=== PATIENT | female | born 1930 | race Caucasian/White ===

== ENCOUNTER 2016-10-16 12:40 | Inpatient (IN) ==
--- NOTE | 2016-10-16 13:07 | EKG Report ---
Stationary ECG Study [facility] ER Test Date: 10/16/2016 1:09:37 PM Pat Name: RODGER BAUTISTA Department: Room: Gender: F [employer] Operator: Adeel Corcoran : 1930 Requested by: Ayaan Florez Order Number: [id number] Reading MD: SANDY VÁZQUEZ Intervals Clune Rate: 104 P: 999 MD: 0 QRS: 77 QRSD: 88 T: 55 QT: 316 QTc: 376 Interpretive Statements ATRIAL FIBRILLATION WITH RAPID VENTRICULAR RESPONSE POOR R-WAVE PROGRESSION Electronically Signed On 10-16-16 17:41:21 CDT by SANDY VÁZQUEZ [email or web address]
--- NOTE | 2016-10-16 13:34 | XRay Report ---
XR chest 2V Indication: Chest pain, cough, fever Comparison: Chest x-ray dated July 18, 2016 Technique: Frontal and lateral views of the chest. Findings: [id number] cardiomegaly. Chronic change of the lungs without focal consolidation, pleural effusion, or pneumothorax. Visualized osseous and surrounding soft tissue structures appear grossly unchanged. Diffuse osteopenia. IMPRESSION: Stable chest x-ray. Continued cardiomegaly without anna pulmonary edema. PROCEDURE INTERPRETED AT [facility] DEPARTMENT OF RADIOLOGY Final Report Signed by: Dr Parminder Khan
[2016-10-16] MEDS ORDERED: ASPIRIN 325 MG TABLET PO STA (14:17)
[2016-10-16] MEDS ORDERED: KETOROLAC 30 MG/1 ML VIAL IV STA (14:17)
--- NOTE | 2016-10-16 14:31 | Emergency Department Note ---
Mitzy Fitzgerald Hilary, am scribing for, and in the presence of, Jay Jay Spencer MD 14: 19. Johanna Fitzgerald James D, MD, personally performed the services described in this documentation, ascribed by Cindy Forrester in my presence, and it is both accurate and complete [id number] . Arrival - Arrival Chief Complaint: Chest Pain Stated Complaint: c/o chest pain ED Nursing Triage Note: Pt c/o chest pain (worse with deep inspiration), chills , cough, and nausea started this am. Mode of Arrival: Ambulatory Limitations: No Limitations Source: Patient, RN Notes Reviewed Time Seen by Provider: 10/16/16 14:13 - History of Present Illness HPI Narrative: Pt is a 86 y/o white female presenting to the ED with chest pain which onset yesterday. She confirms chest pain, fever, pain upon breathing abut denies exertion making it worse. No other complaints or problems stated in the ED. Onset (ago): day(s) Consistency: constant Severity: mild Severity scale (1-10): 2 Quality: other (stings) Allergies/Adverse Reactions: Allergies Allergy/AdvReac Type Severity Reaction Status Date / Time No Known Allergies Allergy Unverified 10/05/14 09:34 Home Medications: Home Medications Medication Instructions Recorded Confirmed Type Atenolol 25 mg PO QAM 10/06/14 10/16/16 History Digoxin Tab [Lanoxin Tab] 0.125 mg PO QAM 07/18/16 10/16/16 History Review of System - Review of System 12 point system: reviewed and no additional remarkable complaints except as stated - Review of System Constitutional: Present: fever Cardiovascular: Present: chest pain (upon deep breaths). Absent: dyspnea on exertion Medical,Surgical,& Family Hx - Medical History Cardio: History of: Cardiac Dysrhythmia (afib) Neurology: History of: Neurological Problems (memory problems) HEENT: History of: Eye Problem (GLASSES), Dental Problems (FULL SET OF DENTURES) Respiratory: History of: Bronchitis Renal: No history of: Renal Failure Gastrointestinal: History of: GERD, Polyps, GI Problems (COLON RESECTION IN 2010 DUE TO LEAKING POLYP) Musculoskeletal: History of: Amputation Hematology: History of: Bleeding Problems (TAKES COUMADIN) Reproductive: History of: Abnormal Pap Smear - Surgical History HEENT Surgeries: Surgical HX of: Eye Surgery (CATARACT SURGERY), Tonsilectomy & Adenoidectomy Abdominal Surgeries: Surgical HX of: Abdominal Surgery (jejunal resection for ruptured diverticulitis of the jejunum), Appendectomy (194) Reproductive Surgeries: Surgical HX of;: Gynecologic Surgery, Hysterectomy (1972 ) Orthopedic Surgeries: Surgical HX of;: Total Knee Replacement (LEFT KNEE REPLACEMENT 2009) - Family History Family History: Reports;: Family Cancer (SISTER BREAST CANCER) - Social History Smoking Status: Never smoker Exam Physical Examination: GENERAL: This is a well-nourished, well-developed in no apparent distress. VITAL SIGNS: Temperature: 100.1 Pulse: 96 Respiratory: 22 Blood Pressure: 132 /99 O2Sat: 99 HEENT: Head is normocephalic and atraumatic. Pupils are equally round and reactive to light. Extraocular movement are intact. Oropharynx is benign with moist mucous membranes. NECK: Neck is soft and supple without tenderness. There are no masses. There is no lymphadenopathy. LUNGS: Lungs are clear to auscultation bilaterally. Chest rises symmetrically. There is chest wall tenderness. CV: Heart is irregularly irregular without murmurs, rubs, or gallops. ABDOMEN: Abdomen is soft, non-tender to palpation. There are no abnormal masses palpated. There is no organomegaly. Bowel sounds are present and active. SKIN: Skin is warm and dry. No rash. EXTREMITIES: Patient has full range of motion without tenderness. There is no pedal edema. NEUROLOGIC: Awake, alert, and oriented x4. Cranial nerves II through XII are grossly intact. There are no motorsensory deficits. PSYCHIATRIC: Normal affect. Normal mood. Vital Signs: Vital Signs Temperature 99.0 F 10/16/16 15:19 Pulse Rate 96 H 10/16/16 13:03 Respiratory Rate 17 10/16/16 15:15 Blood Pressure 132/99 10/16/16 13:03 O2 Sat by Pulse Oximetry 99 10/16/16 13:03 Course - Consultations Consultation #1: Discussed with hospitalist. Patient will be admitted to their service. Time: 15:40 Results - Labs CBC & BMP: 10/16/16 14:45 10/16/16 14:45 Lab Results: I have reviewed the patients labs Labs: Laboratory Tests 10/16/16 10/16/16 14:45 14:49 WBC 9.0 RBC 4.96 Hgb 15.1 Hct 44.9 Plt Count 189 Neut % (Auto) 74.1 H Lymph % (Auto) 16.5 L POC Creatinine 0.72 POC Estimated GFR (eGFR) > 60 Laboratory Tests 10/16/16 14:45 INR 1.0 PT Patient/Control Mix 10.4 Circ Anticoag PTT 31.7 Laboratory Tests 10/16/16 14:45 Sodium 136 Potassium 4.2 Chloride 101 Carbon Dioxide 28 BUN 13 Calculated Osmolality 271.0 L Troponin I < 0.015 Total Protein 7.0 - EKG EKG results: interpreted by ERMD - Impressions EKG: Atrial fib with RVR, rate 104, low voltage QRS, nonspecific ST-T wave changes. - Diagnostic Findings Procedure: Chest x-ray: report reviewed by me, image reviewed by me (stable chest x-ray. Continued cardiomegaly without anna pulmonary edema.), CT - chest : report reviewed by me (1. no evidence of PE. 2. Since 2012, stable scarring of the right middle lobe and lingula with associated bronchiectasis. Nonspecific heterogeneous groundglass opacity involves both lungs diffusely. QUery mild fluid overload. 3. Mediastinal lymphadenopathy. ) Disposition Clinical Impression: Fever, Chest pain, Mediastinal lymphadenopathy Case discussed with: patient, patient's family Disposition: Still a Patient Condition: Stable Time of Disposition: 15:15
[2016-10-16] MEDS ORDERED: KETOROLAC 30 MG/1 ML VIAL ONE (14:35)
[2016-10-16] MEDS ORDERED: ASPIRIN 325 MG TABLET ONE (14:35)
[2016-10-16 14:54] LABS: Basophils % 0.2 % (0.0-0.8); Eosinophils % 0.1 % (0.00-10.9); Hematocrit 44.9 VOL% (35.7-47.0); Hemoglobin 15.1 GM/DL (12.0-16.0); Immature Granulocytes % 0.4 %; Immature Granulocytes Absolute 0.04 #; Lymphocytes # 1.5 10*3/uL (1.4-4.0); Lymphocytes % 16.5 % (21.3-54.2); Mean Corpuscular HGB Conc 33.6 GM/DL (32-36); Mean Corpuscular Hemoglobin 30 PG (27-34); Mean Corpuscular Volume 90.5 FL (87-102); Mean Platelet Volume 9.7 FL (9.6-12.0); Monocytes # 0.8 10*3/uL (0.11-0.8); Monocytes % 8.7 % (1.7-12.7); Neutrophils # 6.7 10*3/uL (1.4-7.4); Neutrophils % 74.1 % (38.7-73.9); Platelet Count 189 T/CUMM (130-400); Red Blood Count 4.96 MC/CUMM (3.8-5.5); Red Cell Distribution Width 13.2 % (9.3-17.3)
[2016-10-16 15:06] LABS: PT Patient Result 10.4 SECS; Partial Thromboplastin Time 31.7 SECS (0-40)
--- NOTE | 2016-10-16 15:07 | CT Report ---
CT chest PE study Indication: Shortness of breath. CT CHEST WITH CONTRAST, PE PROTOCOL DLP: 183 mGy*cm. One or more of the following dose reduction techniques was used: Automated exposure control, adjustment of the mA and/or kV according the patient size, or use of iterative reconstruction techniques. Comparison: 08/16/2011 Technique: Axial CT images of the chest were obtained during the pulmonary arterial phase of contrast injection. Coronal reconstructions were provided. Omnipaque 350, 80 cc. Findings: No pulmonary artery filling defects to the segmental level. Normal-sized Main pulmonary artery. Atheromatous disease the aorta is noted. No aneurysm or dissection. Coronary artery calcifications are present as well. Normal heart size. Mediastinal lymphadenopathy is present, largest node pretracheal, 10 mm short axis. No pathologic hilar or axillary lymphadenopathy. Lung windows demonstrate bands of scarring and bronchiectasis extending anterior from both hilar structures, one in the right middle lobe and the other in the lingula. Both of these are unchanged since 2012. No new infiltrates. Mild bibasilar atelectasis. Couple of calcified granulomata are present. Somewhat of a heterogeneous groundglass perfusion pattern of the lungs noted diffusely. Limited views of the upper abdomen show fatty infiltration of the liver and calcified gallstones. Degenerative changes of the thoracic spine and osteoporosis noted. Impression: 1. No evidence of PE. 2. Since 2012, stable scarring of the right middle lobe and lingula with associated bronchiectasis. Nonspecific heterogeneous groundglass opacity involves both lungs diffusely. Query mild fluid overload. 3. Mediastinal lymphadenopathy, new since previous examination. No additional lymphadenopathy is seen. PROCEDURE INTERPRETED AT [facility] DEPARTMENT OF RADIOLOGY Final Report Signed by: Avi Rojas M.D.
[2016-10-16 15:17] LABS: Alanine Aminotransferase 18 U/L (13-56); Albumin 4.1 G/DL (3.4-5.0); Alkaline Phosphatase 107 U/L (45-117); Aspartate Amino Transferase 16 U/L (0-37); Blood Urea Nitrogen 13 MG/DL (7-18); Calcium 9.5 MG/DL (8.5-10.1); Glucose 104 MG/DL (74-106); Potassium 4.2 MMOL/L (3.5-5.1); Sodium 136 MMOL/L (136-145); Troponin I Only < 0.015 NG/ML (0.00-0.045)
[2016-10-16] MEDS ORDERED: guaiFENesin/DM ER 600-30 MG TABLET PO PRN (16:14)
[2016-10-16] MEDS ORDERED: ACETAMINOPHEN 325 MG TABLET PO PRN (16:14)
[2016-10-16] MEDS ORDERED: diphenhydrAMINE CAP 25 MG CAPSULE PO PRN (16:14)
[2016-10-16] MEDS ORDERED: ONDANSETRON 4 MG/2 ML VIAL IV PRN (16:14)
[2016-10-16] MEDS ORDERED: DOCUSATE SODIUM 100 MG CAPSULE PO PRN (16:14)
[2016-10-16] MEDS ORDERED: PROMETHAZINE 25 MG/1 ML VIAL IM PRN (16:14)
--- NOTE | 2016-10-16 16:29 | Hospitalist History & Physical ---
<Kaitlyn Tellez - Last Filed: 10/16/16 16:22> Assessment and Plan - Time spent with patient Time spent with patient: Greater than 30 minutes (1) Chest pain Status: Acute Assessment and plan: Acute pain mid-chest presented 09/29. Has subsided at this time.EKG in the ED shows A-fib with controlled rate. Normal Troponin. (2) Fever Status: Acute Assessment and plan: upon presenting to ER patient had a low grade temp will order PRN tylenol. (3) Mediastinal lymphadenopathy Status: Acute Assessment and plan: CT results no PE noted; stable scarring of right middle lobe and lingula with associated bronchiectasis; nonspecific heterogeneous groundglass opacity involves both lungs diffusely; query mild fluid overload; Medistinal lymphadenopathy, new since previous exam. Will Consult Dr Galicia for further evaluation. (4) Atrial fibrillation Problem details: The patient is probably somewhat confused. I think she's been taking her warfarin sporadically. Discussed with family. Status: Acute Assessment and plan: Afib history; irregular rate with controlled rate. patient is not on any blood thinners related to history of peritoneal bleed; and a fall about 2 years ago that caused her to have a large hematoma to right arm and had to have a graft. Patient will not be on any blood thinners. Qualifiers: Atrial fibrillation type: chronic Qualified Code(s): I48.2 - Chronic atrial fibrillation History of Present Illness Chief complaint: Chest pain History of present illness: Ms. Woods is a very pleasant 86 year old white female with a history of A-Fib , GERD, Polyps. Presents to the ER with c/o mid-chest pain and low grade temp 99.0. The pain started last night but was tolerable; got much worse this morning 09/29 rate and unrelieved by mylanta. Home Medications Medication Instructions Recorded Confirmed Type Atenolol 25 mg PO QAM 10/06/14 10/16/16 History Digoxin Tab [Lanoxin Tab] 0.125 mg PO QAM 07/18/16 10/16/16 History Aspirin 81 mg PO DAILY #30 tab.chew 10/17/16 Rx Levofloxacin Tab [Levaquin Tab] 500 mg PO DAILY #7 tablet 10/17/16 Rx Pantoprazole Tab [Protonix Tab] 40 mg PO DAILY #30 tablet 10/17/16 Rx Allergies Allergy/AdvReac Type Severity Reaction Status Date / Time No Known Allergies Allergy Unverified 10/05/14 09:34 Medical,Surgical,& Family Hx - Medical History Cardio: History of: Cardiac Dysrhythmia (afib) Neurology: History of: Neurological Problems (memory problems) HEENT: History of: Eye Problem (GLASSES), Dental Problems (FULL SET OF DENTURES) Respiratory: History of: Bronchitis Renal: No history of: Renal Failure Gastrointestinal: History of: GERD, Polyps, GI Problems (COLON RESECTION IN 2010 DUE TO LEAKING POLYP) Musculoskeletal: History of: Amputation Hematology: History of: Bleeding Problems (TAKES COUMADIN) Reproductive: History of: Abnormal Pap Smear - Surgical History HEENT Surgeries: Surgical HX of: Eye Surgery (CATARACT SURGERY), Tonsilectomy & Adenoidectomy Abdominal Surgeries: Surgical HX of: Abdominal Surgery (jejunal resection for ruptured diverticulitis of the jejunum), Appendectomy (1944) Reproductive Surgeries: Surgical HX of;: Gynecologic Surgery, Hysterectomy ( 1972 for uterine cancer) Orthopedic Surgeries: Surgical HX of;: Total Knee Replacement (LEFT KNEE REPLACEMENT 2009) - Family History Family History: Reports;: Family Cancer (SISTER BREAST CANCER) - Social History Smoking Status: Never smoker Review of systems: 10 ROS systems obtained and positives and negatives per HPI Exam - Constitutional Vitals: Period Temp Pulse Resp BP Sys/Baron Pulse Ox Last 24 Hr 99.0 F-100.1 F 96-96 17-22 132-132/99-99 99 General appearance: normal weight, no acute distress - Head Head exam: Present: normal inspection - Eye Eye exam: Present: EOMI Pupils: Present: SIMÓN - Neck Neck exam: Present: normal inspection - Respiratory Respiratory exam: Present: clear to auscultation bilaterally. Absent: chest wall tenderness - Cardiovascular Cardiovascular exam: Present: irregular rhythm (Afib) - GI/Abdominal GI/Abdominal exam: Present: normal bowel sounds, soft. Absent: guarding, tenderness, rebound - Extremities Exam Extremities exam: Present: full ROM. Absent: edema - Neurological Exam Neurological exam: Present: alert, oriented X3 - Psychiatric Psychiatric exam: Present: normal affect - Skin Skin exam: Present: normal color, warm, dry Results - Labs CBC & BMP: 10/16/16 14:45 10/16/16 14:45 Lab Results: I have reviewed the past 24 hour labs - Diagnostic Findings Procedure: CT - chest: report reviewed by me (No evidence of PE; stable scarring of right middle lobe w/ associated bronchiectasis; query mild fluid overload; mediastinal lymphadenopathy, new since previous examination; no additional lymphadenopathy seen.), X-ray: report reviewed by me (stable chest xray; continued cardiomegaly without anna pulmonary edema.) Quality Measures - VTE Contraindication to Pharmacological VTE Prophylaxis: High Risk of Bleeding <Lisa Carbajal - Last Filed: 10/17/16 17:16> History of Present Illness History of present illness: Ms. Woods is a 86 year old female I was not notified of this patient yesterday so I didn't see her then. I agree with this H&P, see discharge summary form today also. Exam - Constitutional Vitals: Period Temp Pulse Resp BP Sys/Baron Pulse Ox Last 24 Hr 96.9 F-98.5 F 62-86 16-18 108-136/57-86 95-97 Results - Labs CBC & BMP: 10/17/16 03:14 10/17/16 03:14
[2016-10-16] MEDS: SODIUM CHLORIDE 0.9% 1,000 ML IV SCH (18:24)
[2016-10-17 04:07] LABS: Basophils % 0.3 % (0.0-0.8); Eosinophils # 0.1 10*3/uL (0.0-0.87); Eosinophils % 0.8 % (0.00-10.9); Hemoglobin 12.8 GM/DL (12.0-16.0); Immature Granulocytes % 0.3 %; Immature Granulocytes Absolute 0.02 #; Lymphocytes # 1.7 10*3/uL (1.4-4.0); Lymphocytes % 27.5 % (21.3-54.2); Mean Corpuscular HGB Conc 32.8 GM/DL (32-36); Mean Corpuscular Hemoglobin 30 PG (27-34); Mean Corpuscular Volume 90.7 FL (87-102); Mean Platelet Volume 10.2 FL (9.6-12.0); Monocytes # 0.8 10*3/uL (0.11-0.8); Monocytes % 13.4 % (1.7-12.7); Neutrophils # 3.6 10*3/uL (1.4-7.4); Neutrophils % 57.7 % (38.7-73.9); Platelet Count 156 T/CUMM (130-400); Red Cell Distribution Width 13.3 % (9.3-17.3); White Blood Count 6.3 T/CUMM (4-12)
[2016-10-17 04:34] LABS: Bilirubin,Total 1.4 MG/DL (0.2-1.0); Calcium 8.8 MG/DL (8.5-10.1); Magnesium 2.2 MG/DL (1.8-2.4); Osmolality,Calculated 281.3 MOS/KG (273-304); Potassium 4.4 MMOL/L (3.5-5.1); Total Protein 5.4 G/DL (6.4-8.3)
[2016-10-17] MEDS: SODIUM CHLORIDE 0.9% 1,000 ML IV SCH (06:14)
--- NOTE | 2016-10-17 07:48 | Pulmonology Consult Note ---
Assessment and Plan (1) Chest pain Status: Acute Assessment and plan: The patient presents with sharp stabbing lower chest pain that has resolved. This certainly sounds musculoskeletal but it could be related to her GI tract. She certainly looks fairly healthy at present. Current Visit: Yes (2) Fever Status: Acute Assessment and plan: The patient had a temp to 100.1 but otherwise is not having any other symptoms. Current Visit: Yes (3) Mediastinal lymphadenopathy Status: Acute Assessment and plan: The mediastinal adenopathy looks quite insignificant and I would certainly just follow this. Current Visit: Yes (4) Atrial fibrillation Problem details: The patient is probably somewhat confused. I think she's been taking her warfarin sporadically. Discussed with family. Status: Acute Assessment and plan: Patient has chronic atrial fibrillation and will continue medications. Current Visit: No Qualifiers: Atrial fibrillation type: chronic Qualified Code(s): I48.2 - Chronic atrial fibrillation History of Present Illness Chief complaint: Chest pain History of present illness: Ms. Woods is a 86 year old white female that came in yesterday with some sharp lower sternal chest pain that started in the morning. The patient has been quite healthy and active. She says she works in her garden and has been feeling well. She does have a history of having atrial fibrillation in the past. Otherwise she has never had any cardiac disease. She states 2 nights ago she had a large meal and then ate some watermelon. She went to bed the next morning she woke up with a stabbing pain. She took some Maalox and was better. She came to the emergency room and the pain returned and was relieved by Toradol. She does not recall having any injuries to her chest. She is otherwise feeling well. She has not had any unusual fevers, sweats or weight changes. She says she has a good appetite. In the emergency room she had a CT angiogram that was negative. It was reported that she had some 1 cm mediastinal nodes. At present she says she is feeling much better. Home Medications Medication Instructions Recorded Confirmed Type Atenolol 25 mg PO QAM 10/06/14 10/16/16 History Digoxin Tab [Lanoxin Tab] 0.125 mg PO QAM 07/18/16 10/16/16 History Allergies Allergy/AdvReac Type Severity Reaction Status Date / Time No Known Allergies Allergy Unverified 10/05/14 09:34 - Constitutional Constitutional: Absent: chills, fatigue, fever(s), headache(s), night sweats, weakness, weight gain, weight loss - EENT Eyes: Absent: loss of vision Ears: Absent: decreased hearing Nose, mouth and throat: Absent: dysphagia, neck mass, sinus pressure - Cardiovascular Cardiovascular: Present: chest pain at rest. Absent: chest pain with activity, dyspnea, dyspnea on exertion, edema, orthopnea, palpitations, PND - Respiratory Respiratory: Present: pain on inspiration. Absent: cough, dyspnea, hemoptysis, wheezing - Gastrointestinal Gastrointestinal: Present: other (She thought she may have had a maroon color stool). Absent: abdominal pain, change in bowel habits, constipation, dysphagia , heartburn, nausea, vomiting - Genitourinary Genitourinary: Absent: difficulty urinating, dysuria, hematuria, urinary frequency - Musculoskeletal Musculoskeletal: Absent: arthralgias, back pain, muscle weakness, myalgias - Neurological Neurological: Absent: abnormal speech, focal weakness, paresthesias - Psychiatric Psychiatric: Absent: anxiety, depression - Hematologic/Lymphatic Hematologic/Lymphatic: Absent: easy bruising, lymphadenopathy Exam (Pulmonay) H&P - Constitutional Vitals: Period Temp Pulse Resp BP Sys/Baron Pulse Ox Last 24 Hr 96.9 F-100.1 F 71-96 16-22 108-136/57-99 95-99 General appearance: normal weight, no acute distress - Head Head exam: Present: normal inspection, normocephalic - Eye Eye exam: Present: EOMI. Absent: scleral icterus Pupils: Present: SIMÓN - ENT ENT exam: Present: normal exam - Neck Neck exam: Present: normal inspection. Absent: lymphadenopathy, thyromegaly - Respiratory Respiratory exam: Present: chest wall tenderness. Absent: clear to auscultation bilaterally, rhonchi, wheezes - Cardiovascular Cardiovascular exam: Present: irregular rhythm. Absent: gallop, systolic murmur , tachycardia - GI/Abdominal GI/Abdominal exam: Present: normal bowel sounds, soft. Absent: distended, organomegaly, tenderness - Extremities Exam Extremities exam: Absent: calf tenderness, edema - Neurological Exam Neurological exam: Present: alert, oriented X3, CN II-XII intact. Absent: motor sensory deficit - Psychiatric Psychiatric exam: Present: normal affect, normal mood - Skin Skin exam: Present: warm, dry Medical,Surgical,& Family Hx - Medical History Cardio: History of: Cardiac Dysrhythmia (afib) No history of: Hypertension, [place], Pacemaker Psychological: No history of: Anxiety Disorders Neurology: History of: Neurological Problems (memory problems) HEENT: History of: Eye Problem (GLASSES), Dental Problems (FULL SET OF DENTURES) Respiratory: History of: Bronchitis, Pneumonia Renal: No history of: Renal Failure Gastrointestinal: History of: GERD, Polyps, GI Problems (COLON RESECTION IN 2010 DUE TO LEAKING POLYP) Musculoskeletal: History of: Amputation, Musculoskeletal Problems (back brace from a fracture) Hematology: No history of: Bleeding Problems (TAKES COUMADIN) Reproductive: History of: Abnormal Pap Smear - Surgical History Cardiac Surgeries: Patient Denies: Cardiac Catheterization Thoracic Surgeries: Patient denies;: Organ Transplant, Lobectomy Neurologic Surgeries: Patient denies: Neurologic Surgery HEENT Surgeries: Surgical HX of: Eye Surgery (CATARACT SURGERY), Tonsilectomy & Adenoidectomy Abdominal Surgeries: Surgical HX of: Abdominal Surgery (jejunal resection for ruptured diverticulitis of the jejunum), Appendectomy (1944) Reproductive Surgeries: Surgical HX of;: Gynecologic Surgery, Hysterectomy ( 1972 for uterine cancer) Orthopedic Surgeries: Surgical HX of;: Total Knee Replacement (LEFT KNEE REPLACEMENT 2009) - Family History Family History: Reports;: Family Cancer (SISTER BREAST CANCER) - Social History Smoking Status: Never smoker Frequency of Alcohol Use: None Type of Drug Use: None Results - Labs CBC & BMP: 10/17/16 03:14 10/17/16 03:14 - Diagnostic Findings Procedure: Chest x-ray: image reviewed by me, report reviewed by me (Chest x- ray shows borderline cardiomegaly otherwise unremarkable.), CT - chest: image reviewed by me, report reviewed by me (CT shows no signs of emboli. There is very small mediastinal adenopathy that really unchanged from 2012.) Quality Measures - VTE Contraindication to Pharmacological VTE Prophylaxis: High Risk of Bleeding - Stroke Symptom Onset Unknown: No
[2016-10-17] MEDS ORDERED: ATENOLOL 25 MG TABLET PO SCH (09:00)
[2016-10-17] MEDS ORDERED: PANTOPRAZOLE 40 MG TABLET PO SCH (09:00)
--- NOTE | 2016-10-17 09:28 | Hospitalist Progress Note ---
Assessment and Plan - Time spent with patient Time spent with patient: Less than 30 minutes (1) Chest pain Status: Acute Assessment and plan: 10/17/16 - acute lower chest pain resolved; she had a good night without SOB or chest pain. No distress noted. Dr Galicia followed for consult for resulted mediastinal lymphadenopathy found on the CT - He believes that it is insignificant and feels it needs to be followed. Discuss with Dr Carbajal findings. Acute pain mid-chest presented 09/29. Has subsided at this time.EKG in the ED shows A-fib with controlled rate. Normal Troponin. Current Visit: Yes (2) Fever Status: Acute Assessment and plan: 10/17/16 - patient is afebrile (97.8) - has PRN tylenol ordered if needed. upon presenting to ER patient had a low grade temp will order PRN tylenol. Current Visit: Yes (3) Mediastinal lymphadenopathy Status: Acute Assessment and plan: 10/17/16 - Dr Galicia was consulted; he feels the mediastinal lyphadenopathy is insignificant at this time; but feels need to be followed. 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 Will Consult Dr Galicia for further evaluation. Current Visit: Yes (4) Atrial fibrillation Problem details: The patient is probably somewhat confused. I think she's been taking her warfarin sporadically. Discussed with family. Status: Acute Assessment and plan: 10/17/16 - afib history with rate controlled. patient has significant history for retroperitoneal bleed; unable to take anticoagulation. - will continue current medications. Afib history; irregular rate with controlled rate. patient is not on any blood thinners related to history of peritoneal bleed; and a fall about 2 years ago that caused her to have a large hematoma to right arm and had to have a graft. Patient will not be on any blood thinners. Current Visit: No Qualifiers: Atrial fibrillation type: chronic Qualified Code(s): I48.2 - Chronic atrial fibrillation Hospitalist: Subjective Interval history: 10/17/16 - very pleasant Ms Woods 86 y/o w/f came in yesterday with lower chest pain; on exam: sitting up on side of bed about to eat breakfast; no acute distress; denies any SOB or chest pain throughout the night. Verbalizes had a good night; verbalizes that Dr Galicia saw her this morning; Exam - Constitutional Vitals: Period Temp Pulse Resp BP Sys/Baron Pulse Ox Last 24 Hr 96.9 F-100.1 F 70-96 16-22 108-136/57-99 95-99 General appearance: normal weight - Head Head exam: Present: normal inspection - Eye Eye exam: Present: EOMI Pupils: Present: SIMÓN - Neck Neck exam: Present: normal inspection - Respiratory Respiratory exam: Present: clear to auscultation bilaterally - Cardiovascular Cardiovascular exam: Present: irregular rhythm (history of AFib- not on blood thinners; unable to take any anticoagulation medications due to history) Results - Labs CBC & BMP: 10/17/16 03:14 10/17/16 03:14 Lab Results: I have reviewed the past 24 hour labs (Neutrophilss and Lymph have returned to normal values; [place] increaed to 13.4 from 8.7 this a.m.) Quality Measures - VTE Contraindication to Pharmacological VTE Prophylaxis: High Risk of Bleeding - Stroke Symptom Onset Unknown: No
--- NOTE | 2016-10-17 11:38 | Discharge Summary ---
Hospital Course - Hospital Course Hospital Course: Mrs Woods was admitted yesterday after having chest pain after 2 large meals the night before. The pain was atypical in nature. She had complete relief after receiving Toradol in the ER. She feels good this morning. She ruled out for GA. Her UA was clear. She was seen by DR Galicia regarding the mediastinal lymphadenopathy seen on chest CT ordered to rule out PE. He felt like the most prudent course was to follow these as outpatient and will see her in his clinic and do CT chest in 6 months. I also talked to Dr Stearns who will see her soon in clinic. He knows her well and will follow up on the PPI that I have started. I also recommended tylenol for recurrent pain. If her symptoms change or become more concerning he will refer her to cardiology. She used to see DR Bobby. - Time spent with patient Time with patient DS: Greater than 30 minutes (coordinating [employer] poan with Dr Stearns and Dr Galicia and patient and her daughter. documentation, medicine reconciliation) Diagnosis - Discharge Diagnosis (1) Chest pain Status: Resolved (2) Mediastinal lymphadenopathy Status: Chronic Specialty Discharge - Follow Up or Referrals Follow up with: Neri Rucker MD [Physician] - 10/25/16 2:30 pm Mando Galicia MD [Physician] - ([address]) Discharge Plan - Discharge Data Disposition: Disch To Home/Self Care Condition at Discharge: Stable Discharge Diet: advance to your usual diet Activity: resume usual activities as tolerated - Discharge Medications New Aspirin 81 mg PO DAILY #30 tab.chew Levofloxacin Tab [Levaquin Tab] 500 mg PO DAILY #7 tablet Pantoprazole Tab [Protonix Tab] 40 mg PO DAILY #30 tablet Continue Atenolol 25 mg PO QAM Digoxin Tab [Lanoxin Tab] 0.125 mg PO QAM - Follow Up or Referral Follow Up: Neri Rucker MD [Physician] - 10/25/16 2:30 pm Mando Galicia MD [Physician] - ([address]) - Forms/Instructions Exam - Constitutional Vitals: Period Temp Pulse Resp BP Sys/Baron Pulse Ox Last 24 Hr 96.9 F-100.1 F 70-96 16-22 108-136/57-99 95-99 General appearance: normal weight, no acute distress - Head Head exam: Present: normocephalic, atraumatic - Eye Eye exam: Present: EOMI. Absent: scleral icterus - Respiratory Respiratory exam: Present: clear to auscultation bilaterally - Cardiovascular Cardiovascular exam: Present: irregular rhythm - GI/Abdominal GI/Abdominal exam: Present: normal bowel sounds, soft. Absent: tenderness - Extremities Exam Extremities exam: Absent: edema Discharge Results Procedures and tests throughout hospitalization: Pending Orders 10/17/16 07:57 Occult Blood, Stool Routine Labs on day of discharge: Labs from last 24 hours 10/17/16 10/17/16 10/16/16 03:14 03:14 14:49 WBC 6.3 RBC 4.30 Hgb 12.8 D Hct 39.0 MCV 90.7 MCH 30 MCHC 32.8 RDW 13.3 Plt Count 156 MPV 10.2 Neut % (Auto) 57.7 Lymph % (Auto) 27.5 Pine % (Auto) 13.4 H Eos % (Auto) 0.8 Baso % (Auto) 0.3 Neut # (Auto) 3.6 Lymph # (Auto) 1.7 Pine # (Auto) 0.8 Eos # (Auto) 0.1 Baso # (Auto) 0.0 Immature Gran % 0.3 Nucleated RBC % 0.0 Immature Gran # 0.02 Nucleated RBCs # 0.00 INR PT Patient/Control Mix Circ Anticoag PTT Sodium 141 Potassium 4.4 Chloride 106 Carbon Dioxide 27 Anion Gap 12.4 BUN 16 Creatinine 0.80 POC Creatinine 0.72 GFR Calculation 61 POC Estimated GFR (eGFR) > 60 BUN/Creatinine Ratio 20.00 Glucose 96 Calculated Osmolality 281.3 Calcium 8.8 Magnesium 2.2 Total Bilirubin 1.40 H AST 12 ALT 14 Alkaline Phosphatase 78 Troponin I Total Protein 5.4 L Albumin 3.0 L Globulin 2.4 Albumin/Globulin Ratio 1.2 10/16/16 10/16/16 10/16/16 14:45 14:45 14:45 WBC 9.0 RBC 4.96 Hgb 15.1 Hct 44.9 MCV 90.5 MCH 30 MCHC 33.6 RDW 13.2 Plt Count 189 MPV 9.7 Neut % (Auto) 74.1 H Lymph % (Auto) 16.5 L Pine % (Auto) 8.7 Eos % (Auto) 0.1 Baso % (Auto) 0.2 Neut # (Auto) 6.7 Lymph # (Auto) 1.5 Pine # (Auto) 0.8 Eos # (Auto) 0.0 Baso # (Auto) 0.0 Immature Gran % 0.4 Nucleated RBC % 0.0 Immature Gran # 0.04 Nucleated RBCs # 0.00 INR 1.0 PT Patient/Control Mix 10.4 Circ Anticoag PTT 31.7 Sodium 136 Potassium 4.2 Chloride 101 Carbon Dioxide 28 Anion Gap 11.2 BUN 13 Creatinine 0.80 POC Creatinine GFR Calculation 61 POC Estimated GFR (eGFR) BUN/Creatinine Ratio 16.00 Glucose 104 Calculated Osmolality 271.0 L Calcium 9.5 Magnesium Total Bilirubin 1.00 AST 16 ALT 18 Alkaline Phosphatase 107 Troponin I < 0.015 Total Protein 7.0 Albumin 4.1 Globulin 2.9 Albumin/Globulin Ratio 1.4 DS: Provider Date of admission: 10/16/16 16:12 Primary care physician: . No PCP Attending physician on admission: Lisa Carbajal MD Consults: 10/16/16 17:08 Consult to Physician [CONS] Routine Comment: mediastinal lymphadenopathy Consulting Provider: Mando Galicia Consulting Provider Notified: Yes When should Consulting Provider be notified: Now Person Notified: Dr Galicia Date Notified: 10/16/16 Time Notified: 17:41 Consult Notification Comment: will see in am Discharging clinician: Lisa Carbajal MD
[2016-10-17 12:11] VITALS: BP 111/72
[2016-10-17 12:22] LABS: Apearance,Urine CLEAR (Clear); Bilirubin,Urine Negative (Negative); Blood, Urine Small mg/dL (Negative); Glucose,Urine (UA) Negative (Negative); Ketones,Urine Negative (Negative); Mucus,Urine Occasional /LPF (Occasional); Nitrite,Urine Negative (Negative); Protein,Urine Negative; RBC,Urine 1 /HPF (0-4); Squamous Epithelial Cell,Urine Occasional /HPF (0-10); Urine Color Yellow (Yellow); Urine Specific Gravity 1.017 (1.001-1.035); Urine Urobilinogen < 2.0 EU/DL (0.2-1.0); WBC,Urine 1 /HPF (0-6)
[2016-10-17] MEDS ORDERED: DIGOXIN 0.125 MG TABLET PO SCH (13:00)
== END 2016-10-17 14:38 | disposition home or self-care (01) | DRG 313 ==
LOC: N.ED 12:40 → N.EDINP 16:12 → N.TELEN 17:45
PROVIDERS: ADMIT Internal Medicine; ATTEND Internal Medicine